=== PATIENT | female | born 1960 | race Caucasian/White ===

== ENCOUNTER 2018-08-26 21:23 | Emergency (ER) | payer OTHER ==
[~2018-08-26] VITALS: Ht 160 cm; Wt 92.1 kg
[~2018-08-26 21:23] MED LIST: ABAC300; CYCL10 PO; DIPATR PO; DULO30; DULO30 PO; HYDACE5 PO; IBUP800 PO; LOPE2C; LOSHYD PO; OMEP20ER; OMEP20ER PO; ONDA8ODT MM; RXONDA4ODT MM; TELM20 PO; TELM40; TELM80 PO; VICODIN 5-3001 EACH PO; ZOLP5
[2018-08-26 21:55] LABS: BASOPHILS ABSOLUTE AUTO 0.04 K/mm3 (0.00-0.23); BASOPHILS PERCENT AUTO 1 % (0-2); EOSINOPHILS ABSOLUTE AUTO 0.08 K/mm3 (0.00-0.68); EOSINOPHILS PERCENT AUTO 1 % (0-6); Hematocrit 35.8 % (33.0-51.0); Hemoglobin 12.2 g/dL (11.5-16.0); IMMATURE GRAN ABSOLUTE AUTO 0.01 K/mm3 (0.00-0.10); IMMATURE GRAN PERCENT AUTO 0 % (0-1); LYMPHOCYTES ABSOLUTE AUTO 2.79 K/mm3 (0.84-5.20); LYMPHOCYTES PERCENT AUTO 36 % (21-46); MONOCYTES ABSOLUTE AUTO 0.53 K/mm3 (0.16-1.47); MONOCYTES PERCENT AUTO 7 % (4-13); Mean Corpuscular HGB Conc 34.1 g/dL (31.5-36.5); Mean Corpuscular Volume 82 fL (80-100); Mean Platelet Volume 10.9 fL (9.1-12.4); NEUTROPHILS ABSOLUTE AUTO 4.31 K/mm3 (1.96-9.15); NEUTROPHILS PERCENT AUTO 56 % (41-73); Platelet Count 265 K/mm3 (150-400); RDW Coefficient Variation 13.2 % (11.7-14.2); RDW Standard Deviation 39.8 fL (35.1-46.3); Red Blood Cell Count 4.36 M/mm3 (3.80-5.20); White Blood Cell Count 7.76 K/mm3 (4.00-11.30)
[2018-08-26 22:01] LABS: Base Excess Venous 0.5 mmol/L; PCO2 Venous 37.3 mmHg (38-42); PO2 Venous 88.6 mmHg (38-42); pH Blood Venous 7.43 (7.34-7.37)
[2018-08-26 22:13] LABS: Albumin, Blood 3.4 g/dL (3.4-5.0); Albumin/Globulin Ratio 0.9 (0.8-1.8); Beta-hydroxybutyrate 1.9 mg/dL (0.2-2.8); Bilirubin, Total 0.3 mg/dL (0.1-1.0); Bun/Creatinine Ratio 23.4 (12.0-20.0); Calcium, Blood 8.4 mg/dL (8.5-10.1); Creatinine, Blood 1.45 mg/dL (0.40-1.00); Globulin, Blood 3.9 g/dL (2.2-4.0); Total Protein, Blood 7.3 g/dL (6.4-8.2)
[2018-08-27 00:05] LABS: Source, Urine Clean Catch
[2018-08-27] MEDS ORDERED: LOSA25 PO (00:16)
[2018-08-27] MEDS ORDERED: HYDCHL12.5 PO (00:16)
[2018-08-27 00:18] LABS: Bilirubin, Urine Neg (Neg); Blood, Urine 1+ (Neg); Glucose Qualitative, Urine 4+ (Neg); Ketones, Urine Neg (Neg); Leukocyte Esterase, Urine 3+ (Neg); Nitrite, Urine Pos (Neg); Protein, Urine 2+ (Neg); Urobilinogen, Urine NORM (Normal); pH, Urine 6.5 (5.0-8.0)
[2018-08-27 00:26] LABS: Appearance, Urine Hazy (Clear); Color, Urine Yellow (P-Yellow)
[2018-08-27 00:33] LABS: Red Blood Cells, Urine 0-2 /hpf (0-2)
[2018-08-27 00:34] LABS: Bacteria Few /hpf; Squamous Epithelial Cells Few /hpf (Few)
[2018-08-27] MEDS ORDERED: CEPH500 PO (01:39)
== END 2018-08-27 02:10 | disposition home or self-care (01) ==
LOC: ER 21:23
PROVIDERS: Emergency Medicine
DX: E11.65 Type 2 diabetes mellitus with hyperglycemia (principal); N39.0 Urinary tract infection, site not specified; E86.0 Dehydration; Z88.1 Allergy status to other antibiotic agents; Z88.5 Allergy status to narcotic agent; Z88.8 Allergy status to other drugs, medicaments and biological substances; Z79.899 Other long term (current) drug therapy
CPT/HCPCS: 36415; 80053; 81001; 82010; 82803; 82947; 85025; 87086; 96360; 99284-25; J1815; J7030

== ENCOUNTER → 2019-02-20 | Outpatient (CLI) | payer OTHER ==
[~2019-02-20] MED LIST changes: +CEPH500 PO; +HYDCHL12.5 PO; +LOSA25 PO
== END | disposition home or self-care (01) ==
LOC: LAB SHORT 13:36 → LAB 13:36 → LAB FUT 02-20 09:25 → EDSTATUS 02-20 09:25
DX: R30.0 Dysuria (principal)
CPT/HCPCS: 87086

== ENCOUNTER 2019-04-16 13:18 | Day surgery (SDC) | payer OTHER ==
[~2019-04-16] VITALS: Ht 157.5 cm; Wt 90.4 kg
[~2019-04-16 13:18] MED LIST changes: +ACID REDUCER20 MG PO; +DULO60 PO; +Excedrin Extra1 EACH PO; +LOSARTAN POTAS100 MG PO
== END 2019-04-16 14:59 | disposition home or self-care (01) ==
LOC: ORSCSDS 13:18
PROVIDERS: Surgery
PROC: 0DBM8ZX Excision of Descending Colon, Via Natural or Artificial Opening Endoscopic, Diagnostic (ICD-10-PCS; principal; 2019-04-16 14:30)
DX: R10.31 Right lower quadrant pain (principal); D12.4 Benign neoplasm of descending colon; R19.7 Diarrhea, unspecified; E11.9 Type 2 diabetes mellitus without complications; I10 Essential (primary) hypertension; G47.33 Obstructive sleep apnea (adult) (pediatric); K21.9 Gastro-esophageal reflux disease without esophagitis; F32.9 Major depressive disorder, single episode, unspecified; Z68.37 Body mass index [BMI] 37.0-37.9, adult; E66.9 Obesity, unspecified; Z79.899 Other long term (current) drug therapy
CPT/HCPCS: 82947; 88305; J2704; J7120

== ENCOUNTER 2019-06-08 08:49 | Day surgery (SDC) | payer OTHER ==
[~2019-06-08] VITALS: Ht 160 cm; Wt 88.4 kg
[2019-06-08] MEDS ORDERED: LIRA0.6P INJ (09:12)
== END 2019-06-08 12:45 | disposition home or self-care (01) ==
LOC: ORSCSDS 08:49 → ORD 10:15 → ORSCSDS 10:15
PROVIDERS: Surgery
PROC: 0WUF0JZ Supplement Abdominal Wall with Synthetic Substitute, Open Approach (ICD-10-PCS; principal; 2019-06-08 10:15)
DX: K43.2 Incisional hernia without obstruction or gangrene (principal); I10 Essential (primary) hypertension; E11.9 Type 2 diabetes mellitus without complications; G47.33 Obstructive sleep apnea (adult) (pediatric); E66.9 Obesity, unspecified; Z68.34 Body mass index [BMI] 34.0-34.9, adult; Z79.899 Other long term (current) drug therapy
CPT/HCPCS: 82947; A9270-GY; C1781; J0690; J1100; J1885; J2250; J2405; J2704; J2710; J3010; J7120

== ENCOUNTER → 2020-03-17 | Outpatient (CLI) | payer OTHER ==
[~2020-03-17] MED LIST changes: +LIRA0.6P INJ
== END | disposition home or self-care (01) ==
LOC: LAB 10:24 → LAB SHORT 10:24 → LAB FUT 03-15 16:50
DX: R05 Cough (principal)
CPT/HCPCS: 87070; 87205

== ENCOUNTER → 2022-02-01 | Outpatient (CLI) | payer BC | END | disposition home or self-care (01) | LOC: LAB SHORT 08:47 → LAB 08:47 | DX: J02.0 Streptococcal pharyngitis (principal) | CPT/HCPCS: 87081 ==

== ENCOUNTER 2022-08-03 00:19 | Emergency (ER) | payer BC ==
[~2022-08-03] VITALS: Ht 160 cm; Wt 81.7 kg
== END 2022-08-03 03:20 | disposition left against medical advice (07) ==
LOC: ER 00:19
DX: G89.18 Other acute postprocedural pain (principal); M25.511 Pain in right shoulder; E11.9 Type 2 diabetes mellitus without complications; Z88.1 Allergy status to other antibiotic agents; Z88.5 Allergy status to narcotic agent
CPT/HCPCS: 99282

== ENCOUNTER → 2023-09-19 | Outpatient (CLI) | payer BC ==
[2023-09-19 15:21] LABS: BASOPHILS ABSOLUTE AUTO 0.07 K/mm3 (0.00-0.23); BASOPHILS PERCENT AUTO 1 % (0-2); EOSINOPHILS ABSOLUTE AUTO 0.13 K/mm3 (0.00-0.68); EOSINOPHILS PERCENT AUTO 1 % (0-6); Hematocrit 41.5 % (33.0-51.0); Hemoglobin 14.7 g/dL (11.5-16.0); IMMATURE GRAN ABSOLUTE AUTO 0.02 K/mm3 (0.00-0.10); IMMATURE GRAN PERCENT AUTO 0 % (0-1); LYMPHOCYTES ABSOLUTE AUTO 2.72 K/mm3 (0.84-5.20); LYMPHOCYTES PERCENT AUTO 28 % (21-46); MONOCYTES ABSOLUTE AUTO 0.61 K/mm3 (0.16-1.47); MONOCYTES PERCENT AUTO 6 % (4-13); Mean Corpuscular HGB 30.6 pg (26.0-34.0); Mean Corpuscular HGB Conc 35.4 g/dL (31.5-36.5); Mean Corpuscular Volume 87 fL (80-100); Mean Platelet Volume 9.9 fL (9.1-12.4); NEUTROPHILS ABSOLUTE AUTO 6.23 K/mm3 (1.96-9.15); NEUTROPHILS PERCENT AUTO 64 % (41-73); Platelet Count 331 K/mm3 (150-400); RDW Coefficient Variation 12.4 % (11.7-14.2); RDW Standard Deviation 38.9 fL (35.1-46.3); White Blood Cell Count 9.78 K/mm3 (4.00-11.30)
[2023-09-19 15:43] LABS: Albumin, Blood 4.2 g/dL (3.4-5.0); Albumin/Globulin Ratio 1.1 (0.8-1.8); Bilirubin, Total 0.3 mg/dL (0.1-1.0); Bun/Creatinine Ratio 26.6 (12.0-20.0); Calcium, Blood 9.7 mg/dL (8.5-10.1); Creatinine, Blood 0.79 mg/dL (0.40-1.00); Free Thyroxine 0.95 ng/dL (0.70-1.60); Globulin, Blood 3.8 g/dL (2.2-4.0); Potassium, Blood 3.4 mmol/L (3.5-5.5); Thyroid Stimulating Hormone 0.812 uIU/mL (0.360-4.800)
== END ==
LOC: LAB 15:17 → LAB SHORT 15:17
PROVIDERS: Chiropractor
DX: E04.1 Nontoxic single thyroid nodule (principal); I10 Essential (primary) hypertension
CPT/HCPCS: 80053; 84439; 84443; 84484; 85025; 85379

== ENCOUNTER 2025-02-15 03:32 | Emergency (ER) | payer BC ==
[~2025-02-15] VITALS: Ht 157.5 cm; Wt 79.4 kg
[2025-02-15] MEDS ORDERED: Mag Hydrox/AL Hydrox/Simeth 30 ML UDC PO ONE (03:50)
[2025-02-15] MEDS ORDERED: Lidocaine 2% Viscous Soln 15 ML UDC PO ONE (03:50)
[2025-02-15 03:55] LABS: BASOPHILS ABSOLUTE AUTO 0.08 K/mm3 (0.00-0.23); BASOPHILS PERCENT AUTO 1 % (0-2); EOSINOPHILS ABSOLUTE AUTO 0.17 K/mm3 (0.00-0.68); EOSINOPHILS PERCENT AUTO 1 % (0-6); Hematocrit 35.4 % (33.0-51.0); Hemoglobin 11.8 g/dL (11.5-16.0); IMMATURE GRAN ABSOLUTE AUTO 0.04 K/mm3 (0.00-0.10); IMMATURE GRAN PERCENT AUTO 0 % (0-1); LYMPHOCYTES ABSOLUTE AUTO 2.29 K/mm3 (0.84-5.20); LYMPHOCYTES PERCENT AUTO 19 % (21-46); MONOCYTES PERCENT AUTO 6 % (4-13); Mean Corpuscular HGB 29.6 pg (26.0-34.0); Mean Corpuscular HGB Conc 33.3 g/dL (31.5-36.5); Mean Corpuscular Volume 89 fL (80-100); Mean Platelet Volume 10.1 fL (9.1-12.4); NEUTROPHILS ABSOLUTE AUTO 8.75 K/mm3 (1.96-9.15); NEUTROPHILS PERCENT AUTO 73 % (41-73); Platelet Count 264 K/mm3 (150-400); RDW Coefficient Variation 13.2 % (11.7-14.2); RDW Standard Deviation 42.8 fL (35.1-46.3); Red Blood Cell Count 3.98 M/mm3 (3.80-5.20); White Blood Cell Count 12.03 K/mm3 (4.00-11.30)
[2025-02-15] MEDS ORDERED: METOPROLOL SUCC25 MG PO (04:08)
[2025-02-15] MEDS ORDERED: BUPROPION XL150 M1 PO (04:08)
[2025-02-15] MEDS ORDERED: LISINOPRIL-HCT1 EAC1 PO (04:08)
[2025-02-15] MEDS ORDERED: ESTRADIOL TD (04:08)
[2025-02-15] MEDS ORDERED: NEURONTIN300 MG PO (04:09)
[2025-02-15] MEDS ORDERED: ZOLOFT10013 PO (04:09)
[2025-02-15 04:17] LABS: Albumin, Blood 3.8 g/dL (3.4-5.0); Bilirubin, Total 0.3 mg/dL (0.1-1.0); Bun/Creatinine Ratio 22.7 (12.0-20.0); Calcium, Blood 9.2 mg/dL (8.5-10.1); Creatinine, Blood 1.28 mg/dL (0.40-1.00); Globulin, Blood 3.9 g/dL (2.2-4.0); Potassium, Blood 4.3 mmol/L (3.5-5.5); Total Protein, Blood 7.7 g/dL (6.4-8.2)
[2025-02-15] MEDS ORDERED: CODITUSSIN AC473 M1 PO ×2 (05:44→10:53)
[2025-02-15 06:00] VITALS: BP 119/75
== END 2025-02-15 06:04 | disposition home or self-care (01) ==
LOC: ER 03:32
PROVIDERS: Emergency Medicine
DX: R07.89 Other chest pain (principal); R05.9 Cough, unspecified; E11.9 Type 2 diabetes mellitus without complications; I10 Essential (primary) hypertension; K21.9 Gastro-esophageal reflux disease without esophagitis; Z88.1 Allergy status to other antibiotic agents; Z88.5 Allergy status to narcotic agent; Z88.6 Allergy status to analgesic agent; Z88.8 Allergy status to other drugs, medicaments and biological substances; Z79.899 Other long term (current) drug therapy
CPT/HCPCS: 71045; 80053; 84484; 85025; 93005; 93010; 99285-25; A9270